=== PATIENT | female | born 1985 | race American Indian/Alaskan Native ===

== ENCOUNTER 2017-09-05 00:34 | Emergency (ER) | payer SELFPAY ==
[2017-09-05 00:41] VITALS: BP 110/73
[2017-09-05 02:26] LABS: Bilirubin,Urine NEG (Negative); Blood,Urine SM (Negative); Color,Urine Yellow (Yellow); Protein,Urine <15 mg/dL mg/dL (Negative); RBC,Urine < 1.0 /HPF (0.0-6.0); Urobilinogen,Urine < 2.0 mg/dL (<2.0); WBC,Urine < 1.0 /HPF (0.0-6.0)
[2017-09-05 02:31] LABS: HCG Qualitative,Urine Negative (Negative)
== END 2017-09-05 02:53 | disposition left against medical advice (07) ==
LOC: ED 00:34
DX: R10.9 Unspecified abdominal pain (principal); Z53.21 Procedure and treatment not carried out due to patient leaving prior to being seen by health care provider
CPT/HCPCS: 81001; 81025

== ENCOUNTER 2017-10-27 07:56 | Emergency (ER) | payer SELFPAY ==
[2017-10-27 08:03] VITALS: BP 133/71
[2017-10-27 08:30] LABS: HCG Qualitative,Urine Negative (Negative)
[2017-10-27 08:31] LABS: Bilirubin,Urine NEG (Negative); Blood,Urine MOD (Negative); Color,Urine Yellow (Yellow); Mucus,Urine FEW /HPF; Protein,Urine <15 mg/dL mg/dL (Negative)
[2017-10-27] MEDS ORDERED: MACROBID PO ONE (09:29)
--- NOTE | 2017-10-27 09:40 | Emergency Department Report ---
ED Female HPI - General Chief complaint: Urogenital-Female Stated complaint: UTI Time Seen by Provider: 10/27/17 09:10 Source: patient Mode of arrival: Ambulatory Limitations: No Limitations - History of Present Illness Initial comments: 32 yo female with a past medical history asthma, previous ectopic , C- section, and right sided ovary and fallopian tube removal presents to the hospital complaining of burning with urination and malodorous urine 2 weeks. Mild suprapubic discomfort reported. She denies vaginal discharge, concern for STD, vaginal bleeding, fever, or flank pain. - Related Data Previous Rx's Medication Instructions Recorded Last Taken Type Nitrofurantoin Monohyd/M-Cryst 100 mg PO BID #10 capsule 10/27/17 Unknown Rx [Macrobid 100 mg Capsule] Allergies Allergy/AdvReac Type Severity Reaction Status Date / Time latex Allergy Anaphylaxis Verified 10/27/17 08:03 ED Review of Systems ROS: Stated complaint: UTI Other details as noted in HPI Comment: All other systems reviewed and negative ED Past Medical Hx - Past Medical History Previous Medical History?: Yes Hx Asthma: Yes - Surgical History Past Surgical History?: Yes Additional Surgical History: ectopic, , cysts on right overy removed, left fallopian tube - Social History Smoking Status: Former Smoker Substance Use Type: Alcohol - Medications Home Medications: Home Medications Medication Instructions Recorded Confirmed Last Taken Type Nitrofurantoin Monohyd/M-Cryst 100 mg PO BID #10 capsule 10/27/17 Unknown Rx [Macrobid 100 mg Capsule] ED Physical Exam - General Limitations: No Limitations - Other Other exam information: General: No limitations, patient is alert in no acute distress Head exam: Atraumatic, normocephalic Eyes exam: Normal appearance ENT: Moist mucous membrane, normal oropharynx Neck exam: Normal inspection, full range of motion, no meningismus nontender Respiratory exam: Clear to auscultation bilateral, no wheezes, rales, crackles Cardiovascular: Normal rate and rhythm, normal heart sounds Abdomen: Soft, nondistended, mild suprapubic discomfort, with normal bowel sounds, no rebound, or guarding Extremity: Full range of motion normal inspection no deformity Back: Normal Inspection, full range of motion, no tenderness Neurologic: Alert, oriented x3, cranial nerves intact, no motor or sensory deficit Psychiatric: normal affect, normal mood Skin: Warm, dry, intact ED Course Vital Signs 10/27/17 08:00 Temperature 97.5 F L Pulse Rate 68 Respiratory 18 Rate Blood Pressure 133/71 O2 Sat by Pulse 99 Oximetry ED Medical Decision Making - Medical Decision Making Patient has UTI symptoms and bloody urine and therefore will be covered for UTI. Patient states that she frequently has blood in her urine when is checked. Outpatient follow up PMD and neurology encouraged. Dose of Macrobid provided in the ED prior to discharge - Differential Diagnosis UTI, cervicitis, PID, vaginitis, kidney stone Critical Care Time: No Critical care attestation.: If time is entered above; I have spent that time in minutes in the direct care of this critically ill patient, excluding procedure time. ED Disposition Clinical Impression: Microscopic hematuria, UTI (urinary tract infection) Disposition: TO HOME OR SELFCARE Is pt being admited?: No Does the pt Need Aspirin: No Condition: Stable Instructions: Acute Hematuria (ED), Urinary Tract Infection in Women (ED) Additional Instructions: Take the medication as prescribed. Follow up with your doctor. Return if symptoms worsen as indicated by your discharge instructions Prescriptions: Nitrofurantoin Monohyd/M-Cryst [Macrobid 100 mg Capsule] 100 mg PO BID #10 capsule Referrals: PRIMARY CAREMD [Primary Care Provider] - 3-5 Days REGULO SWIFT MD [Staff Physician] - 3-5 Days (Urologist) YASMANY HINES MD [Staff Physician] - 3-5 Days (Primary care doctor) [facility] [Provider Group] - 3-5 Days (Primary care clinic) Time of Disposition: 09:40
== END 2017-10-27 10:08 | disposition home or self-care (01) ==
LOC: ED 07:56
DX: R31.29 Other microscopic hematuria (principal); N39.0 Urinary tract infection, site not specified; J45.909 Unspecified asthma, uncomplicated; Z90.79 Acquired absence of other genital organ(s); Z90.721 Acquired absence of ovaries, unilateral; Z87.891 Personal history of nicotine dependence
CPT/HCPCS: 81001; 81025; 99283